=== PATIENT | male | born 1945 | race Caucasian/White ===

== ENCOUNTER → 2017-07-08 | Outpatient (CLI) | payer MEDICARE ==
[~2017-07-08] MED LIST: CINN500C7 PO; COUM2.5T PO; COZA50TA PO; HYDR-3580 PO; PROT40TA PO; Z.0.WALKERFRONT
--- NOTE | 2017-07-09 10:05 | RSPPFT ---
DATE OF PROCEDURE: 07/08/17 COMMENTS: VOLUMES DYNAMIC: FVC and FEV1 normal. STATIC: TLC, RV and FRC mildly reduced. FLOWS: FEV1% normal; FEF 25-75 mildly reduced. DIFFUSION: Normal. FLOW VOLUME LOOP: Restrictive configuration. IMPRESSION: Mild restrictive ventilatory defect with mild terminal airflow obstruction. No reduction in diffusion. No significant improvement post-bronchodilator.
== END ==
LOC: HRSP 08:43
PROVIDERS: ATTEND Internal Medicine
DX: J45.909 Unspecified asthma, uncomplicated (principal)
CPT/HCPCS: 94060; 94618; 94726; 94729; 95012